=== PATIENT | female | born 1955 | race Caucasian/White ===

== ENCOUNTER → 2017-12-19 | Outpatient (CLI) | payer BC ==
[~2017-12-19] MED LIST: CLARITIN,ALAVAR10 MG PO; FISH OIL 1,0001 EAC7 PO; FLONASE SENSIM9.9 ML BOTH NARES; PREMPRO 0.31 TABLET PO; PREMPRO 0.451 TABLET PO; PROCARDIA XL30 MG PO; RESTASIS MULTI5.5 ML BOTH EYES; SYNTHROID88 MCG PO; VALTREX1000 MG PO
== END | disposition home or self-care (01) ==
LOC: OPR 07:35 → EDSTATUS 08:00
PROC: 0BDC4ZX Extraction of Right Upper Lung Lobe, Percutaneous Endoscopic Approach, Diagnostic (ICD-10-PCS; principal; 2017-12-19)
DX: C34.11 Malignant neoplasm of upper lobe, right bronchus or lung (principal); E03.9 Hypothyroidism, unspecified; Z87.891 Personal history of nicotine dependence; B39.2 Pulmonary histoplasmosis capsulati, unspecified; I10 Essential (primary) hypertension; Z88.0 Allergy status to penicillin; Z83.3 Family history of diabetes mellitus; Z80.3 Family history of malignant neoplasm of breast; Z80.8 Family history of malignant neoplasm of other organs or systems
CPT/HCPCS: 71045; 77012; 85027; 85610; 85730

== ENCOUNTER → 2018-01-16 | Outpatient (CLI) | payer BC | END | disposition home or self-care (01) | LOC: CDC 10:31 | DX: R00.0 Tachycardia, unspecified (principal) | CPT/HCPCS: 93000 ==

== ENCOUNTER 2018-01-30 06:33 | Day surgery (SDC) | payer BC ==
[~2018-01-30] VITALS: Ht 154.9 cm; Wt 55.0 kg
[2018-01-30 07:06] VITALS: BP 122/67
[2018-01-30 07:44] LABS: INTER. NORMALIZED RATIO 1.1
[2018-01-30 07:47] LABS: PTT 27.2 SEC (25-37)
[2018-01-30 07:59] LABS: ALBUMIN 3.7 G/DL (3.2-4.8); ALKALINE PHOSPHATASE 63 IU/L (3-129); ALT (GPT) 7 IU/L (3-49); AST (GOT) 13 IU/L (2-34); CHLORIDE 107 MEQ/L (99-109); CREATININE 0.8 MG/DL (0.6-1.3); GFR ESTIMATE (CALCULATED) > 59 mL/min/; GLUCOSE 94 mg/dL (70-99); POTASSIUM 4.3 MEQ/L (3.7-5.4); SODIUM 139 MEQ/L (136-147); TOTAL BILIRUBIN 0.4 MG/DL (0.0-1.0); TOTAL PROTEIN 7.3 G/DL (6.4-8.3); UREA NITROGEN (BUN) 9 mg/dL (9-23)
[2018-01-30] MEDS ORDERED: HYDROCODON-ACE1 EAC7 PO (10:25)
[2018-01-30] MEDS ORDERED: COLACE100 MG PO (10:25)
[2018-01-30 10:55] VITALS: BP 126/67
[2018-01-30 11:55] VITALS: BP 134/72
== END 2018-01-30 12:12 | disposition home or self-care (01) ==
LOC: SDC 06:33
PROVIDERS: Thoracic Surgery (Cardiothoracic Vascular Surgery)
PROC: 07B74ZX Excision of Thorax Lymphatic, Percutaneous Endoscopic Approach, Diagnostic (ICD-10-PCS; principal; 2018-01-30)
DX: C34.11 Malignant neoplasm of upper lobe, right bronchus or lung (principal); C77.1 Secondary and unspecified malignant neoplasm of intrathoracic lymph nodes; E78.5 Hyperlipidemia, unspecified; I73.9 Peripheral vascular disease, unspecified; E03.9 Hypothyroidism, unspecified; R00.0 Tachycardia, unspecified; Z88.0 Allergy status to penicillin; Z87.891 Personal history of nicotine dependence
CPT/HCPCS: 80053; 85610; 85730; 86850; 86900; 86901; 88305; 93005; J0330; J2405; J2710; J3010; J7643; S0020